=== PATIENT | female | born 2005 | race Two or more races ===

== ENCOUNTER 2025-04-06 14:48 | Emergency (ER) | payer MEDICAID, SELFPAY ==
[2025-04-06 15:55] LABS: Hematocrit 35.4 % (36.0-46.0); Hemoglobin 12.3 g/dL (12.2-16.2); Mean Corpuscular Hemoglobin 28.1 pg (28.0-32.0); Mean Corpuscular Volume 80.8 fL (80.0-100.0); Nucleated Red Blood Cells % 0.1 %
[2025-04-06 16:03] LABS: Chloride 106 mmol/L (98-107); Potassium 3.5 mmol/L (3.5-5.1); Sodium 139 mmol/L (136-145)
[2025-04-06 16:04] LABS: Anion Gap 9 (5-15); Carbon Dioxide 24 mmol/L (20-31)
[2025-04-06 16:06] LABS: INR 1.02 (0.9-1.15); Partial Thromboplastin Time 30.0 SEC (24.5-34.5); Prothrombin Time 10.8 sec (9.3-11.8)
[2025-04-06 16:09] LABS: BUN/Creatinine Ratio 15.8 (10.0-20.0); Glucose 74 mg/dL (74-106)
[2025-04-06 16:10] LABS: Blood Urea Nitrogen 9 mg/dL (9-23)
[2025-04-06 16:17] LABS: Calcium 9.6 mg/dL (8.7-10.4)
--- NOTE | 2025-04-06 16:22 | ED.PDOC ---
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 She has never had this previously. She has not tried anything for her symptoms at home. She has not had any ultrasounds for this . She denies any fever, cough, chest pain, shortness breath, nausea, vomiting, diarrhea, urinary symptoms, vaginal discharge, sick contacts, recent travel, prior abdominal surgeries. 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 Family History Family History: Reviewed,noncontributory to illness, No family hx of Cancer, No family hx of DM, No family hx of Heart oh, No family hx of HTN, No family hx ofKidney oh, No family hx of Liver oh, No family hx of Lung oh, No family hx of Stroke Social History Smoker: Non-Smoker Alcohol: Denies ETOH Use Drugs: Denies Drug Use Lives In: Home Constitutional: denies: chills, diaphoresis, fatigue, fever, malaise, sweats, w eakness, others EENTM: denies: blurred vision, double vision, ear bleeding, ear discharge, ear drainage, ear pain, ear ringing, eye pain, eye redness, hearing loss, mouth pain, mouth swelling, nasal discharge, nose bleeding, nose congestion, nose pain, photophobia, tearing, throat pain, throat swelling, voice changes, others Respiratory: denies: cough, hemoptysis, orthopnea, SOB at rest, shortness of breath, SOB with excertion, stridor, wheezing, others Cardiovascular: denies: chest pain, dizzy spells, diaphoresis, Dyspnea on exertion, edema, irregular heart beat, left arm pain, lightheadedness, palpitations, PND, syncope, others Gastrointestinal: reports: abdominal pain; denies: abdomen distended, blood streaked bowels, constipated, diarrhea, dysphagia, difficulty swallowing, hematemesis, melena, nausea, poor appetite, poor fluid intake, rectal bleeding, rectal pain, vomiting, others Genitourinary: reports: abnormal vagina bleeding, ; denies: burning, dyspareunia, dysuria, flank pain, frequency, hematuria, incontinence, pain, vagina discharge, urgency, others Neurological: denies: dizziness, fainting, headache, left sided numbness, left sided weakness, numbness, paresthesia, pre-existing deficit, right sided numbness, right sided weakness, seizure, speech problems, tingling, tremors, weakness, others Musculoskeletal: denies: back pain, gout, joint pain, joint swelling, muscle pain, muscle stiffness, neck pain, others Integumetry: denies: bruises, change in color, change in hair/nails, dryness, laceration, lesions, lumps, rash, wounds, others Allergic/Immunocompromised: denies: Difficulty Healing, Frequent Infections, Hives, Itching, others Hematologic/Lymphatic: denies: anemia, blood clots, easy bleeding, easy bruising, swollen glands, others Endocrine: denies: excessive hunger, excessive sweating, excessive thirst, excessive urination, flushing, intolerance to cold, intolerance to heat, unexplained weight gain, unexplained weight loss, others Psychiatric: denies: anxiety, bipolar disorder, depression, hopeless, panic disorder, schizophrenia, sleepless, suicidal, others Physical Exam General Appearance: No Apparent Distress, Normal HEENT: Normal ENT Inspection, Pharynx Normal, TMs Normal Neck: Full Range of Motion, Non-Tender, Normal, Normal Inspection Respiratory: Chest Non-Tender, Lungs Clear, No Accessory Muscle Use, No Respiratory Distress, Normal Breath Sounds Cardiovascular: No Edema, No JVD, No Murmur, No Gallop, Normal Peripheral Puls es, Regular Rate/Rhythm Breast Exam: Deferred Gastrointestinal: No Organomegaly, Non Tender, No Pulsatile Mass, Normal Bowel Sounds, Soft, Other (Mildly tender to palpation suprapubically. No rebound or guarding) Genitalia: Deferred Pelvic: Deferred Rectal: Deferred Extremities: No calf tenderness, Normal capillary refill, Normal inspection, Normal range of motion, Non-tender, No pedal edema Neurologic: Alert, case management rn II-XII nml as Tested, No Motor Deficits, Normal Affect, Normal Mood, No Sensory Deficits Cerebellar Function: Normal Reflexes: Normal Skin: Dry, Normal Color, Warm Lymphatic: No Adenopathy Was a procedure done? Was a procedure done?: No Differential Diagnosis (BAILING MACHINE OPERATOR) Vaginal Bleeding: - Incomplete, - Inevitable, - Missed, - Threatened, Blood Loss Anemia, Ectopic , Hormonal, UTI X-Ray, Labs, Meds, VS Vital Signs Date Time Temp Pulse Resp B/P (MAP) Pulse Ox O2 Delivery O2 Flow Rate FiO2 04/06/25 17:50 98.2 66 15 125/75 (92) 100 98.2 04/06/25 14:50 97.8 99 18 113/77 98 97.8 Lab Test 04/06/25 15:30 04/06/25 15:13 Range/Units Urine Color Colorless Yellow Urine Clarity Clear Clear Urine pH 6.0 5.0-9.0 Urine Specific [place] 1.003 1.001-1.035 Urine Protein Negative Negative Urine Ketones 1+ H Negative Urine Blood 2+ H Negative /uL Urine Nitrite Negative Negative Urine Bilirubin Negative Negative Urine Urobilinogen Normal Negative mg/dL Urine Leukocyte Esterase Negative Negative /uL Urine RBC 1 0 - 4 /hpf Urine Microscopic WBC < 1 0-5 /HPF Urine Squamous Epithelial Cells Few <5 /hpf Urine Bacteria Few H None Seen /hpf Urine Glucose Normal Normal mg/dL White Blood Count 9.4 4.4-10.8 10^3/uL Red Blood Count 4.38 4.0-5.20 10^6/uL Hemoglobin 12.3 12.2-16.2 g/dL Hematocrit 35.4 L 36.0-46.0 % Mean Corpuscular Volume 80.8 80.0-100.0 fL Mean Corpuscular Hemoglobin 28.1 28.0-32.0 pg Mean Corpuscular Hemoglobin Concent 34.7 32.0-36.0 g/dL Red Cell Distribution Width 12.7 11.8-14.3 % Platelet Count 249 140-450 10^3/uL Mean Platelet Volume 8.7 6.9-10.8 fL Neutrophils (%) (Auto) 67.3 37.0-80.0 % Lymphocytes (%) (Auto) 28.4 10.0-50.0 % Monocytes (%) (Auto) 3.8 0.0-12.0 % Eosinophils (%) (Auto) 0.3 0.0-7.0 % Basophils (%) (Auto) 0.2 0.0-2.0 % Neutrophils # (Auto) 6.3 1.6-8.6 10 ^3/uL Lymphocytes # (Auto) 2.7 0.4-5.4 10 ^3/uL Monocytes # (Auto) 0.4 0-1.3 10 ^3/uL Eosinophils # (Auto) 0 0-0.8 10 ^3/uL Basophils # (Auto) 0 0-0.2 10 ^3/uL Nucleated Red Blood Cells 0.1 % Prothrombin Time 10.8 9.3-11.8 sec Prothrombin Time INR 1.02 0.9-1.15 Activated Partial Thromboplast Time 30.0 24.5-34.5 SEC Sodium Level 139 136-145 mmol/L Potassium Level 3.5 3.5-5.1 mmol/L Chloride Level 106 98-107 mmol/L Carbon Dioxide Level 24 20-31 mmol/L Anion Gap 9 5-15 Blood Urea Nitrogen 9 9-23 mg/dL Creatinine 0.57 0.550-1.02 mg/dL Glomerular Filtration Rate Calc 133 >90 mL/min BUN/Creatinine Ratio 15.8 10.0-20.0 Serum Glucose 74 74-106 mg/dL Calcium Level 9.6 8.7-10.4 mg/dL Beta HCG, Quantitative 64508.6 H 1.5-4.2 mIU/mL [place] [id number] Ph: [phone] DIAGNOSTIC IMAGING Diagnostic Imaging Report : [id number] Signed PATIENT: LALY MEADEAACCT: [id number] UNIT: [id number] : 2005 LOC: ER ROOM / BED: / AGE / SEX: 19 / F ADM STATUS: REG ER SERVICE [id number] ORDERING PHYSICIAN: CLARKE JACKSON MD PROCEDURE(s): OB4US - OB ULTRASOUND COMP LESS 14WKS REASON: vaginal bleeding ORDER NUMBER(s): [id number], ACCESSION NUMBER(s): [id number] INDICATION: vaginal bleeding TECHNIQUE: Multiple real-time grayscale transabdominal sonographic images along with color and duplex Doppler of the uterus and ovaries were obtained. COMPARISON: None FINDINGS: The uterus measures 11.6 x 7 x 8.9 cm. Uterus appears homogeneous. There is a within the endometrial canal. Yolk sac is visible. pole measures 4.65 cm which is consistent with 11 weeks 3 days. Gestational sac measures 5.3 cm consistent with 11 weeks 1 day. Average gestational age is 11 weeks 2 days with an NERY of 10/24/2025. FHR= 155 beats per minute The right ovary measures 3.9 x 2.1 x 2.9 cm. Volume of the right ovary is 12.6 mL The left ovary measures 3.4 x 1.9 x 2 cm. Volume of the left ovary is 6.6 mL. A small anechoic nodule in the left ovary measuring 1.9 x 1.1 x 1.7 cm. This may represent a corpus luteal cyst. Subsequent color and duplex Doppler interrogation of the ovaries demonstrated symmetric vascular flow to both ovaries, though this does not exclude the possibility of torsion due to the dual blood supply. IMPRESSION: 1. Single living intrauterine of 11 weeks 2 days ; NERY 10/24/2025. 2. FHR: 155 beats per minute ATED BY: PRESTON VERGARA Jr., DO DICTATED DATE/TIME: 04/06/251728 SIGNED BY: PRESTON VERGARA Jr., SIGNED DATE/TIME: 04/06/251728 CC: X-Ray, Labs, Meds, VS Comment Patient is a 19-year-old female, at approximately 12 weeks gestation presenting with pelvic cramping and vaginal spotting for the past hour and a half. Vital signs stable and exam otherwise unremarkable. Patient comfortable appearing. Lab work (CBC, BMP) to evaluate for evidence of severe anemia, electrolyte abnormality including hypokalemia, hyperkalemia, hypernatremia, hyponatremia, hyperglycemia, hypoglycemia, etc. Urinalysis to evaluate for hematuria or infection Pelvic ultrasound to evaluate for ectopic , heart rate, IUP, etc. Re-evaluation Social determinant surveillance affecting care: Social determinants of health that will affect the patient's care: Poor health literacy (additional time provided an explanation) Poor access to outpatient care/followup (provided outpatient resources) Time of 1ST Reevaluation: 19:00 Reevaluation 1ST: Unchanged Patient Education/Counseling: Diagnosis, Prognosis Family Education/Counseling: No Family Present Departure 1 Departure Time of Disposition: 17:48 (On reassessment, patient's symptoms improved. Labs and imaging unremarkable. Ultrasound showing IUP with normal heart rate. Discussed with patient need for repeat beta check in 48 hours and outpatient follow-up with OB. Given strict return precautions and PMD follow-up.) Impression: Primary Impression: Threatened miscarriage Additional Impression: Vaginal bleeding affecting early Disposition: HOME / SELF CARE / HOMELESS Condition: Stable Additional Instructions: Your blood work and ultrasound were normal today. Return in 48 hours for repeat blood tests and follow-up with your OB for further evaluation. Discharged With: Self Critical Care Note Critical Care Time?: No Stability Stability form required: No I personally scribed for CLARKE JACKSON MD ([email or web address]) on 04/06/25 at 19:39. El ectronically submitted by Pavel Hollins ([email or web address]). CLARKE JACKSON MD Apr 06, 2025 16:22
[2025-04-06 16:51] LABS: Urine Protein, UAD Negative (Negative)
--- NOTE | 2025-04-06 17:31 | DVH ---
INDICATION: vaginal bleeding TECHNIQUE: Multiple real-time grayscale transabdominal sonographic images along with color and duplex Doppler of the uterus and ovaries were obtained. COMPARISON: None FINDINGS: The uterus measures 11.6 x 7 x 8.9 cm. Uterus appears homogeneous. There is a within the endometrial canal. Yolk sac is visible. pole measures 4.65 cm which is consistent with 11 weeks 3 days. Gestational sac measures 5.3 cm consistent with 11 weeks 1 day. Average gestational age is 11 weeks 2 days with an NERY of 10/24/2025. FHR= 155 beats per minute The right ovary measures 3.9 x 2.1 x 2.9 cm. Volume of the right ovary is 12.6 mL The left ovary measures 3.4 x 1.9 x 2 cm. Volume of the left ovary is 6.6 mL. A small anechoic nodule in the left ovary measuring 1.9 x 1.1 x 1.7 cm. This may represent a corpus luteal cyst. Subsequent color and duplex Doppler interrogation of the ovaries demonstrated symmetric vascular flow to both ovaries, though this does not exclude the possibility of torsion due to the dual blood supply. IMPRESSION: 1. Single living intrauterine of 11 weeks 2 days ; NERY 10/24/2025. 2. FHR: 155 beats per minute
[2025-04-06 20:48] VITALS: BP 119/68; TEMP 97.4
[2025-04-06 20:49] VITALS: PULSE 64; RESP 16; O2SAT 100
== END 2025-04-06 20:55 | disposition home or self-care (01) ==
LOC: ER 14:48
DX: O20.0 Threatened abortion (principal); Z3A.12 12 weeks gestation of pregnancy
CPT/HCPCS: 36415; 76801; 80048; 81001; 84702; 85025; 85610; 85730; 86850; 86900; 86901